=== PATIENT | female | born 1955 | race African-American/Black ===

== ENCOUNTER 2017-11-20 05:25 | Inpatient (IN) ==
[2017-11-20] MEDS ORDERED: CLINDAMYCIN INJ 0 ML IV ONE (05:57)
[2017-11-20] MEDS ORDERED: VANCOMYCIN 1,000 MG VIAL ONE ×2 (05:57→07:30)
[2017-11-20] MEDS ORDERED: CLINDAMYCIN INJ 900 MG in PREMIX 1 EACH IV ONE (06:00)
[2017-11-20] MEDS ORDERED: VANCOMYCIN INJ 1,000 MG in SODIUM CHLORIDE 0.9% 250 ML IV ONE (06:00)
[2017-11-20 06:37] VITALS: BP 156/84
[2017-11-20] MEDS ORDERED: LACTATED RINGERS 1,000 ML IV SCH (07:00)
[2017-11-20] MEDS ORDERED: BISACODYL 10 MG SUPP RECTAL PRN (08:50)
[2017-11-20] MEDS ORDERED: ONDANSETRON 4 MG/2 ML VIAL IV PRN (08:50)
[2017-11-20] MEDS ORDERED: diphenhydrAMINE CAP 25 MG CAPSULE PO PRN (08:50)
[2017-11-20] MEDS ORDERED: NALOXONE 0.4 MG/ML VIAL IV PRN (08:50)
[2017-11-20] MEDS ORDERED: LACTULOSE 20 GM/30 ML UDCUP PO PRN (08:50)
[2017-11-20] MEDS ORDERED: MAGNESIUM HYDROXIDE SUSP 30 ML UDCUP PO PRN (08:50)
[2017-11-20] MEDS ORDERED: HYDROmorphone 2 MG/1 ML VIAL IV PRN (08:50)
[2017-11-20] MEDS ORDERED: PROMETHAZINE 25 MG/1 ML VIAL IM PRN (08:50)
[2017-11-20] MEDS ORDERED: TEMAZEPAM 7.5 MG CAPSULE PO PRN (08:50)
[2017-11-20] MEDS ORDERED: DOCUSATE SODIUM 100 MG CAPSULE PO SCH (09:00)
[2017-11-20] MEDS ORDERED: FUROSEMIDE 40 MG TABLET PO SCH (09:00)
[2017-11-20] MEDS ORDERED: MONTELUKAST 10 MG TABLET PO SCH (09:00)
[2017-11-20] MEDS ORDERED: ASPIRIN CHEW 81 MG TABLET PO SCH (09:00)
[2017-11-20] MEDS ORDERED: POTASSIUM CHLORIDE 20 MEQ TABLET PO SCH (09:00)
[2017-11-20] MEDS ORDERED: amLODIPine 10 MG TABLET PO SCH (09:00)
[2017-11-20] MEDS ORDERED: NON-FORMULARY MEDICATION (Meloxicam [Mobic] 15 MG) PO SCH (09:00)
[2017-11-20] MEDS ORDERED: traMADol 50 MG TABLET PO SCH (09:00)
[2017-11-20] MEDS ORDERED: ESTRADIOL 1 MG TABLET PO SCH (09:00)
[2017-11-20] MEDS ORDERED: HYDROmorphone PCA 30 MG/30 ML SYRINGE IV SCH (09:00)
[2017-11-20 09:14] LABS: Calcium 8.4 MG/DL (8.5-10.1); Osmolality,Calculated 276.4 MOS/KG (273-304); Potassium 2.6 MMOL/L (3.5-5.1)
[2017-11-20] MEDS ORDERED: CLINDAMYCIN INJ 900 MG in PREMIX 1 EACH IV SCH (16:00)
[2017-11-20] MEDS ORDERED: FONDAPARINUX 2.5 MG/0.5 ML SYRINGE SUBCUT SCH (20:00)
[2017-11-20] MEDS ORDERED: PRAVASTATIN 40 MG TABLET PO SCH (21:00)
[2017-11-20] MEDS ORDERED: AMITRIPTYLINE 25 MG TABLET PO SCH (21:00)
== END 2017-11-20 10:25 | disposition home or self-care (01) | DRG 554 ==
LOC: N.SDSINP 05:25
PROVIDERS: ADMIT Orthopaedic Surgery; ATTEND Orthopaedic Surgery